=== PATIENT | male | born 1975 | race Caucasian/White ===

== ENCOUNTER 2017-07-18 23:59 | Inpatient (IN) | payer MEDICAID ==
[~2017-07-18] VITALS: Ht 180.3 cm; Wt 75.8 kg
[2017-07-19] VITALS (8 sets, daily range): BP systolic 123–142; BP diastolic 69–99
[2017-07-19 00:28] LABS: BASOPHILS % (AUTO) 1.2 % (0.0-2.0); EOSINOPHILS # (AUTO) 0.27 K/uL (0.00-0.70); EOSINOPHILS % (AUTO) 3.04 % (1.0-6.0); HEMATOCRIT 46.4 % (41-53); HEMOGLOBIN 15.1 g/dL (13.5-17.5); LYMPHOCYTES # (AUTO) 2.8 K/uL (1.0-4.8); LYMPHOCYTES % (AUTO) 30.6 % (22.0-44.0); MEAN CORPUSCULAR HEMOGLOBIN 29.7 pg (26.0-34.0); MEAN CORPUSCULAR HGB CONC 32.6 G/dL (31.0-37.0); MEAN CORPUSCULAR VOLUME 91 fL (80-100); MONOCYTES # (AUTO) 0.4 K/uL (0.1-1.0); MONOCYTES % (AUTO) 4.9 % (2.0-9.0); NEUTROPHILS # (AUTO) 5.4 K/uL (1.8-7.7); NEUTROPHILS % (AUTO) 60.2 % (40.0-70.0); PLATELET COUNT (AUTO) 322 K/uL (150-450); RED CELL DISTRIBUTION WIDTH 13.8 % (11.5-14.5)
[2017-07-19 00:36] LABS: ANION GAP 11 mmol/L (8-16); CALCIUM, TOTAL 8.5 mg/dL (8.8-10.5); CARBON DIOXIDE 27 mmol/L (22-29); CHLORIDE 106 mmol/L (98-107); CREATININE 1.24 mg/dL (0.60-1.30); GLOMERULAR FILTR. RATE CALC > 60 mL/min (>60); POTASSIUM 3.9 mmol/L (3.5-5.1); SODIUM SERUM 144 mmol/L (136-145); UREA NITROGEN, BLOOD 13 mg/dL (7-18)
[2017-07-19 00:41] LABS: ALANINE AMINOTRANSFERASE 26 U/L (12-78); ALBUMIN 3.6 g/dL (3.4-5.0); ASPARTATE AMINOTRANSFERASE 21 U/L (15-37); BILIRUBIN,TOTAL 0.2 mg/dL (0.1-1.0); TOTAL PROTEIN, SERUM 6.7 g/dL (6.4-8.2)
[2017-07-19] MEDS ORDERED: LORazepam 2 MG TABLET PO PRN (01:45)
[2017-07-19] MEDS ORDERED: HALOPERIDOL 5 MG TABLET PO PRN (01:45)
[2017-07-19 04:36] LABS: CHOL/HDL RATIO 2.5 (4.2-7.3)
[2017-07-19 04:41] LABS: APPEARANCE,URINE CLEAR (CLEAR); GLUCOSE, URINE (UA) NEGATIVE (NEGATIVE); KETONES,URINE TRACE mg/dL (NEGATIVE); LEUKOCYTE ESTERASE ,URINE NEGATIVE (NEGATIVE); OCCULT BLOOD,URINE NEGATIVE (NEGATIVE); PROTEIN,URINE NEGATIVE (NEGATIVE)
[2017-07-19 04:51] LABS: ADD UA MICROSCOPIC NO
[2017-07-19] MEDS: ZOLPIDEM TARTRATE 10 MG TABLET PO PRN (21:28)
[2017-07-20 00:20] VITALS: BP 109/60
[2017-07-20 03:43] VITALS: BP 105/72
[2017-07-20 07:19] VITALS: BP 110/72
[2017-07-20 08:02] VITALS: BP 122/72
[2017-07-20] MEDS ORDERED: LOPERAMIDE HCL 2 MG CAPSULE PO PRN (08:45)
[2017-07-20] MEDS ORDERED: BENZOCAINE/MENTHOL LOZENGE MM PRN (08:45)
[2017-07-20] MEDS ORDERED: IBUPROFEN 600 MG TABLET PO PRN (08:45)
[2017-07-20] MEDS ORDERED: CloNIDine HCL 0.1 MG TABLET PO PRN (08:45)
[2017-07-20] MEDS ORDERED: BACITRACIN 28.4 GM OINTMENT TP PRN (08:45)
[2017-07-20] MEDS ORDERED: MAG HYDROX/AL HYDROX/SIMETH ES 30 ML SUSPENSION UDCUP PO PRN (08:45)
[2017-07-20] MEDS ORDERED: PETROLATUM,WHITE 71 GM JELLY TP PRN (08:45)
[2017-07-20] MEDS ORDERED: ONDANSETRON HCL 4 MG TABLET PO PRN (08:45)
[2017-07-20] MEDS ORDERED: ACETAMINOPHEN 325 MG TABLET PO PRN (08:45)
[2017-07-20] MEDS ORDERED: MAGNESIUM HYDROXIDE SUSPENSION 30 ML UDCUP PO PRN (08:45)
[2017-07-20] MEDS ORDERED: ALBUTEROL SULFATE HFA 90 MCG/PUFF 8 GM INHALER IH PRN (08:45)
[2017-07-20] MEDS: OMEGA-3/DHA/EPA/FISH OIL 500 MG CAPSULE PO SCH (09:39)
[2017-07-20 16:05] VITALS: BP 140/73
[2017-07-20] MEDS: ZOLPIDEM TARTRATE 10 MG TABLET PO PRN (20:25)
[2017-07-21 01:05] VITALS: BP 112/76
[2017-07-21] MEDS: OMEGA-3/DHA/EPA/FISH OIL 500 MG CAPSULE PO SCH (08:05)
[2017-07-21 08:25] VITALS: BP 138/69
[2017-07-21 09:44] VITALS: BP 138/69
[2017-07-21 16:00] VITALS: BP 126/86
[2017-07-21 16:22] VITALS: BP 126/86
[2017-07-22 00:01] VITALS: BP 114/63
[2017-07-22] MEDS: ZOLPIDEM TARTRATE 10 MG TABLET PO PRN ×2 (00:01→22:02)
[2017-07-22 05:38] VITALS: BP 114/63
[2017-07-22] MEDS: OMEGA-3/DHA/EPA/FISH OIL 500 MG CAPSULE PO SCH (08:14)
[2017-07-22 08:21] VITALS: BP 128/78
[2017-07-22 08:22] VITALS: BP 128/78
[2017-07-22 16:00] VITALS: BP 124/74
[2017-07-22 16:02] VITALS: BP 124/74
[2017-07-23 06:03] VITALS: BP 122/79
[2017-07-23 08:55] VITALS: BP 136/80
[2017-07-23 08:58] VITALS: BP 145/91
[2017-07-23] MEDS: OMEGA-3/DHA/EPA/FISH OIL 500 MG CAPSULE PO SCH (09:14)
[2017-07-23 14:30] VITALS: BP 132/87
== END 2017-07-23 18:44 | disposition home or self-care (01) | DRG 753 ==
LOC: EMS 07-19 00:01 → B2S 07-19 13:01
PROVIDERS: ADMIT Psychiatry & Neurology Child & Adolescent Psychiatry; ATTEND Psychiatry & Neurology Child & Adolescent Psychiatry
DX: F31.2 Bipolar disorder, current episode manic severe with psychotic features (principal); E78.5 Hyperlipidemia, unspecified; F41.9 Anxiety disorder, unspecified; F10.10 Alcohol abuse, uncomplicated; F12.90 Cannabis use, unspecified, uncomplicated; G47.00 Insomnia, unspecified; K59.00 Constipation, unspecified; Y90.6 Blood alcohol level of 120-199 mg/100 ml; Z56.0 Unemployment, unspecified; Z71.41 Alcohol abuse counseling and surveillance of alcoholic; Z71.51 Drug abuse counseling and surveillance of drug abuser
CPT/HCPCS: 99285; G0480